=== PATIENT | female | born 1985 | race Caucasian/White ===

== ENCOUNTER 2018-02-25 12:56 | Inpatient (IN) | payer MEDICAID ==
[~2018-02-25] VITALS: Ht 160 cm; Wt 76.3 kg
[~2018-02-25 12:56] MED LIST: DOCU-131 PO; FERR325T18 PO; IBUP-1222 PO
[2018-02-27] MEDS ORDERED: OXYTOCIN 30U/ 0.9% NaCL 500ML 500 ML IV ONE (05:37)
[2018-02-27] MEDS ORDERED: D5%-LACTATED RINGERS 1,000 ML IV SCH (05:37)
[2018-02-27] MEDS ORDERED: LACTATED RINGERS 1,000 ML IV SCH (05:37)
[2018-02-27] MEDS ORDERED: OXYTOCIN 30U/ 0.9% NaCL 500ML 500 ML IV PRN (05:37)
[2018-02-27 05:47] VITALS: BP 109/72
[2018-02-27] MEDS ORDERED: PREN-3 PO (05:57)
[2018-02-27] MEDS ORDERED: ONDANSETRON 2MG/ML, 2ML IVPush PRN (06:00)
[2018-02-27] MEDS ORDERED: SODIUM CITRATE/CITRIC ACID 30 ML UDC PO PRN (06:00)
[2018-02-27] MEDS ORDERED: FENTANYL PF 100 MCG/2ML IV PRN (06:00)
[2018-02-27] MEDS ORDERED: TERBUTALINE 1 MG/ML, 1ML IVPush PRN (06:00)
[2018-02-27] MEDS ORDERED: FENTANYL PF 100 MCG/2ML IVPush PRN (06:00)
[2018-02-27] MEDS ORDERED: NEWBORN KIT ONE (06:15)
[2018-02-27] MEDS ORDERED: OXYTOCIN 30U/ 0.9% NaCL 500ML 500 ML ONE ×2 (06:15→13:16)
[2018-02-27 07:57] LABS: BASOPHILS # (AUTO) 0.04 x10^3/uL (0-0.1); BASOPHILS % (AUTO) 1 % (0-1); EOSINOPHILS # (AUTO) 0.05 x10^3/uL (0-0.4); EOSINOPHILS % (AUTO) 1 % (1-7); LYMPHOCYTES # (AUTO) 1.91 x10^3/uL (1-3.4); LYMPHOCYTES % (AUTO) 30 % (22-44); MD SCAN; MEAN CORPUSCULAR VOLUME 87.8 fL (80-100); MEAN PLATELET VOLUME 12.5 fL (7.4-10.4); MONOCYTES # (AUTO) 0.45 x10^3/uL (0.2-0.8); MONOCYTES % (AUTO) 7 % (2-9); NEUTROPHILS # (AUTO) 4.02 x10^3/uL (1.8-6.8); NEUTROPHILS % (AUTO) 62 % (42-75); PLATELET COUNT 131 x10^3/uL (130-400); RED BLOOD COUNT 4.14 x10^6/uL (3.82-5.3); RED CELL DISTRIBUTION WIDTH 13.6 % (9.6-15.2)
[2018-02-27] MEDS ORDERED: FENTANYL PF 100 MCG/2ML ONE (10:20)
[2018-02-27] MEDS ORDERED: ONDANSETRON ODT 4 MG ONE (10:21)
[2018-02-27] MEDS ORDERED: ONDANSETRON ODT 4 MG PO PRN (10:30)
[2018-02-27] MEDS ORDERED: LIDOCAINE/PF 1%, 30ML ONE (12:02)
[2018-02-27] MEDS ORDERED: IBUPROFEN 600 MG TABLET ONE (12:15)
[2018-02-27] MEDS: OXYTOCIN 30U/ 0.9% NaCL 500ML 500 ML IV SCH ×11 (12:20→23:48)
[2018-02-27] MEDS: IBUPROFEN 600 MG TABLET PO PRN ×2 (12:23→18:27)
[2018-02-27] MEDS ORDERED: HYDROcodone/APAP 5/325 TABLET PO PRN ×2 (12:30)
[2018-02-27] MEDS ORDERED: CALCIUM CARBONATE 500 MG TAB.CHEW PO PRN (12:30)
[2018-02-27] MEDS ORDERED: BISACODYL 10 MG SUPP PR PRN (12:30)
[2018-02-27] MEDS ORDERED: DOCUSATE 100 MG CAPSULE PO PRN (12:30)
[2018-02-27] MEDS ORDERED: ONDANSETRON 2MG/ML, 2ML IV PRN (12:30)
[2018-02-27] MEDS ORDERED: ACETAMINOPHEN 325 MG TABLET PO PRN ×2 (12:30)
[2018-02-27] MEDS ORDERED: MISOPROSTOL 200 MCG TABLET PR PRN (12:30)
[2018-02-27] MEDS ORDERED: MISOPROSTOL 200 MCG TABLET ONE (12:40)
[2018-02-27 14:30] VITALS: BP 105/67
[2018-02-27 19:20] VITALS: BP 101/60
[2018-02-27 20:08] LABS: BASOPHILS # (AUTO) 0.02 x10^3/uL (0-0.1); BASOPHILS % (AUTO) 0 % (0-1); EOSINOPHILS # (AUTO) 0.01 x10^3/uL (0-0.4); EOSINOPHILS % (AUTO) 0 % (1-7); LYMPHOCYTES # (AUTO) 1.37 x10^3/uL (1-3.4); LYMPHOCYTES % (AUTO) 10 % (22-44); MD SCAN; MEAN CORPUSCULAR HEMOGLOBIN 29.3 pg (27.0-34.8); MEAN CORPUSCULAR HGB CONC 33.3 g/dL (32.4-35.8); MEAN PLATELET VOLUME 13.1 fL (7.4-10.4); MONOCYTES % (AUTO) 4 % (2-9); NEUTROPHILS # (AUTO) 12.08 x10^3/uL (1.8-6.8); NEUTROPHILS % (AUTO) 86 % (42-75); PLATELET COUNT 153 x10^3/uL (130-400); RED BLOOD COUNT 4.18 x10^6/uL (3.82-5.3)
[2018-02-28] VITALS: BP 106/62
[2018-02-28] MEDS: OXYTOCIN 30U/ 0.9% NaCL 500ML 500 ML IV SCH ×2 (01:14→02:40)
[2018-02-28 04:39] VITALS: BP 97/66
[2018-02-28 07:00] VITALS: BP 102/68
[2018-02-28] MEDS: IBUPROFEN 600 MG TABLET PO PRN (07:07)
[2018-02-28] MEDS ORDERED: PRENATAL VIT/IRON/FA 1 EACH TABLET PO SCH (09:00)
[2018-02-28] MEDS ORDERED: LACTATED RINGERS 1,000 ML IV SCH ×2 (09:00→12:38)
[2018-02-28] MEDS ORDERED: METOCLOPRAMIDE 5 MG/ML, 2ML IV PRN (13:00)
[2018-02-28] MEDS ORDERED: METOCLOPRAMIDE 5 MG/ML, 2ML IVPush ONE (13:00)
[2018-02-28] MEDS ORDERED: SODIUM CITRATE/CITRIC ACID 30 ML UDC PO ONE (13:00)
[2018-02-28] MEDS ORDERED: SODIUM CITRATE/CITRIC ACID 30 ML UDC ONE (13:03)
[2018-02-28] MEDS ORDERED: METOCLOPRAMIDE 5 MG/ML, 2ML ONE (13:03)
[2018-02-28] MEDS ORDERED: DOCU-131 PO (15:38)
[2018-02-28] MEDS ORDERED: IBUP-1222 PO (15:38)
== END 2018-02-28 15:30 | disposition home or self-care (01) | DRG 775 ==
LOC: LDIP 02-27 05:34 → 2NW 02-27 14:22
PROVIDERS: ADMIT Obstetrics & Gynecology; ATTEND Obstetrics & Gynecology
PROC: 10E0XZZ Delivery of Products of Conception, External Approach (ICD-10-PCS; principal; 2018-02-28)
PROC: 10907ZC Drainage of Amniotic Fluid, Therapeutic from Products of Conception, Via Natural or Artificial Opening (ICD-10-PCS; 2018-02-28)
DX: O99.284 Endocrine, nutritional and metabolic diseases complicating childbirth (principal); Z37.0 Single live birth; O09.523 Supervision of elderly multigravida, third trimester; E05.90 Thyrotoxicosis, unspecified without thyrotoxic crisis or storm; Z3A.40 40 weeks gestation of pregnancy; O09.43 Supervision of pregnancy with grand multiparity, third trimester
CPT/HCPCS: 36415; 85025; 86850; 86900; 86923; G0378; J3010; Q0162; J2590; J7120

== ENCOUNTER → 2018-04-21 | Outpatient (CLI) | payer MEDICAID ==
[~2018-04-21] MED LIST changes: +PREN-3 PO
[2018-04-21 14:40] LABS: BASOPHILS # (AUTO) 0.05 x10^3/uL (0-0.1); BASOPHILS % (AUTO) 1 % (0-1); EOSINOPHILS # (AUTO) 0.13 x10^3/uL (0-0.4); EOSINOPHILS % (AUTO) 2 % (1-7); LYMPHOCYTES # (AUTO) 1.65 x10^3/uL (1-3.4); LYMPHOCYTES % (AUTO) 26 % (22-44); MD NO; MEAN CORPUSCULAR HEMOGLOBIN 29.4 pg (27.0-34.8); MEAN CORPUSCULAR VOLUME 86.6 fL (80-100); MEAN PLATELET VOLUME 8.5 fL (7.4-10.4); MONOCYTES # (AUTO) 0.43 x10^3/uL (0.2-0.8); MONOCYTES % (AUTO) 7 % (2-9); NEUTROPHILS # (AUTO) 4.02 x10^3/uL (1.8-6.8); NEUTROPHILS % (AUTO) 64 % (42-75); PLATELET COUNT 285 x10^3/uL (130-400); RED BLOOD COUNT 4.37 x10^6/uL (3.82-5.3); RED CELL DISTRIBUTION WIDTH 13.5 % (9.6-15.2)
[2018-04-21 14:52] LABS: ALANINE AMINOTRANSFERASE 24 U/L (12-78); ALBUMIN 3.4 g/dL (3.4-5.0); ANION GAP 9 mmol/L (5-15); CALCIUM 8.6 mg/dL (8.5-10.1); CHLORIDE 107 mmol/L (98-107); CREATININE 0.87 mg/dL (0.55-1.02)
[2018-04-21 14:57] LABS: ALKALINE PHOSPHATASE 84 U/L (45-117); BILIRUBIN,TOTAL 0.8 mg/dL (0.2-1.0); TOTAL PROTEIN 7.4 g/dL (6.4-8.2)
[2018-04-21 15:06] LABS: CULTURE INDICATED? YES; MICROSCOPIC INDICATED
== END | disposition home or self-care (01) ==
LOC: STAR 13:59
PROVIDERS: ATTEND Obstetrics & Gynecology
DX: Z30.2 Encounter for sterilization (principal)
CPT/HCPCS: 36415; 80053; 81001; 84702; 85025; 87086

== ENCOUNTER 2018-04-28 10:03 | Day surgery (SDC) | payer MEDICAID ==
[~2018-04-28] VITALS: Ht 160 cm; Wt 56.4 kg
[2018-04-28] MEDS ORDERED: BUPIVACAINE 0.25% ONE (10:35)
[2018-04-28] MEDS ORDERED: EPINEPHRINE 1 MG/ML, 1ML ONE (10:35)
[2018-04-28 10:36] VITALS: BP 112/79
[2018-04-28] MEDS ORDERED: LACTATED RINGERS 1,000 ML IV SCH (10:56)
[2018-04-28 10:57] LABS: HCG UR SG 1.017 (1.003-1.030)
[2018-04-28] MEDS ORDERED: PROPOFOL 50 ML ONE (11:56)
[2018-04-28] MEDS ORDERED: FENTANYL PF 250 MCG/5ML ONE (11:57)
[2018-04-28] MEDS ORDERED: ONDANSETRON 2MG/ML, 2ML ONE (12:24)
[2018-04-28] MEDS ORDERED: DEXAMETHASONE 4 MG/ML, 1ML ONE (12:24)
[2018-04-28] MEDS ORDERED: ROCURONIUM 10MG/ML,5ML ONE (12:24)
[2018-04-28] MEDS ORDERED: KETOROLAC 30 MG/1 ML ONE (12:24)
[2018-04-28] MEDS ORDERED: PROPOFOL 10 MG/ML, 20ML ONE (12:24)
[2018-04-28] MEDS ORDERED: GLYCOPYRROLATE 0.4 MG/2 ML, 2ML ONE (12:25)
[2018-04-28] MEDS ORDERED: EPHEDRINE 50 MG/ML, 1ML IM PRN (13:30)
[2018-04-28] MEDS ORDERED: FENTANYL PF 100 MCG/2ML IV PRN (13:30)
[2018-04-28] MEDS ORDERED: ACETAMINOPHEN 325 MG TABLET PO PRN (13:30)
[2018-04-28] MEDS ORDERED: LABETALOL 5MG/ML, 20ML IV PRN (13:30)
[2018-04-28] MEDS ORDERED: ONDANSETRON ODT 8 MG PO PRN (13:30)
[2018-04-28] MEDS ORDERED: DIPHENHYDRAMINE 50 MG/ML, 1ML IVPush PRN (13:30)
[2018-04-28] MEDS ORDERED: PROMETHAZINE 25 MG/ML, 1ML IV PRN (13:30)
[2018-04-28] MEDS ORDERED: EPHEDRINE 50 MG/ML, 1ML IVPush PRN (13:30)
[2018-04-28] MEDS ORDERED: SILVER NITRATE STICK TP ONE (13:41)
[2018-04-28] MEDS ORDERED: OXYcodone 5 MG/5 ML ORAL.SOL UDC ONE (13:49)
[2018-04-28] MEDS ORDERED: FENTANYL PF 100 MCG/2ML ONE (13:49)
== END 2018-04-28 16:10 | disposition home or self-care (01) ==
LOC: OUT 10:03
PROVIDERS: ATTEND Obstetrics & Gynecology
DX: Z30.2 Encounter for sterilization (principal); Z98.890 Other specified postprocedural states
CPT/HCPCS: 36415; 58670; 81025; 86850; 86900; 88302; J0171; J1100; J1885; J2405; J2704; J3010; J3490; J7120